=== PATIENT | female | born 1960 | race Caucasian/White ===

== ENCOUNTER 2017-11-30 08:43 | Outpatient (CLI) | payer BC | END 2017-11-30 08:44 | disposition home or self-care (01) | LOC: BICMAMMO 08:43 | PROVIDERS: ATTEND Obstetrics & Gynecology | DX: Z12.31 Encounter for screening mammogram for malignant neoplasm of breast (principal) | CPT/HCPCS: 77063; 77067 ==

== ENCOUNTER 2018-03-27 07:29 | Outpatient (CLI) | payer BC ==
--- NOTE | 2018-03-27 10:15 | MRI ---
CERVICAL SPINE MRI WITHOUT CONTRAST: Date: 03-27-18 Comparison: None. History: Radiculopathy and cervical pain radiating up neck and down bilateral arms. Technique: Multiplanar, multisequence MR imaging of cervical spine is obtained without contrast. FINDINGS: The sagittal STIR imaging demonstrates no focal area of osseous marrow edema. There is moderate degenerative change at the atlantoaxial interspace. There is minimal anterolisthesis at C4-5 and C5-6. No prevertebral soft tissue abnormality is seen. C2-3: There is mild bilateral facet hypertrophy. There is disc desiccation. No central canal or neura l foraminal stenosis. C3-4: There is disc desiccation and mild disc bulge. There is mild bilateral facet hypertrophy. No significant central canal or neural foraminal stenosis. C4-5: Disc desiccation, mild disc space narrowing and mild disc bulge. No significant central canal s tenosis. Facet and uncal vertebral osteophyte formation noted, left greater than right. No significan t neural foraminal stenosis. C5-6: There is disc space narrowing, disc desiccation and mild disc bulge. No significant central can al stenosis. Bilateral facet and uncal vertebral osteophyte formation. No significant neural foramina l stenosis on either side. C6-7: Disc space narrowing, disc desiccation and mild disc bulge. Partial effacement of ventral theca l sac. Mild bilateral facet and uncal vertebral osteophyte formation with no significant central jason l or neural foraminal stenosis. C7-T1: No significant central canal or neural foraminal stenosis. No focal area of abnormal signal intensity is identified within the cervical cord. IMPRESSION: Scattered degenerative disc disease and bilateral facet hypertrophy with no significant central canal or neural foraminal stenosis seen within the cervical spine. POS: [facility] [place]
== END 2018-03-27 07:30 | disposition home or self-care (01) ==
LOC: BICMRI 07:29
PROVIDERS: ATTEND Specialist
DX: M50.10 Cervical disc disorder with radiculopathy, unspecified cervical region (principal); M47.22 Other spondylosis with radiculopathy, cervical region
CPT/HCPCS: 72141

== ENCOUNTER 2020-01-25 08:15 | Outpatient (CLI) | payer BC ==
--- NOTE | 2020-01-25 09:08 | BD ---
DEXA BONE MINERAL DENSITY STUDY: HISTORY: Osteoporosis screening. COMPARISON: None. FINDINGS: Lumbar Spine: BMD (g/cm2) L1 0.918 T-Score: -0.7 0.6 L2 0.995 T-Score: -0.3 1.1 L3 1,992 T-Score: -0.7 0.7 L4 0.897 T-Score: -1.5 1.0 L1-L4 0.955 T-Score: -0.8 0.6 Femoral Neck: 0.842 T-Score: -0.1 1.2 Total Femur: 0.956 T-Score: 0.1 1.1 WHO classification: Normal. Impression: Normal bone mineral density. POS: [facility]
== END 2020-01-25 08:16 | disposition home or self-care (01) ==
LOC: BICMAMMO 08:15
PROVIDERS: ATTEND Physician Assistant
DX: Z13.820 Encounter for screening for osteoporosis (principal)
CPT/HCPCS: 77080

== ENCOUNTER 2021-10-05 09:52 | Outpatient (CLI) | payer OTHER | END 2021-10-05 09:53 | disposition home or self-care (01) | LOC: LABBT 09:52 | PROVIDERS: ATTEND Neurological Surgery | DX: Z20.822 Contact with and (suspected) exposure to COVID-19 (principal) | CPT/HCPCS: U0003; U0005 ==

== ENCOUNTER 2021-10-09 11:46 | Day surgery (SDC) | payer OTHER ==
[2021-10-07 08:36] VITALS: BMI 23.8
[2021-10-09] MEDS ORDERED: Midazolam HCl 2 mg/2 ml Vial ONE (12:33)
[2021-10-09] MEDS ORDERED: fentaNYL Citrate/PF 100 MCG/2 ML SYRINGE ONE (12:33)
== END 2021-10-09 15:06 | disposition home or self-care (01) ==
LOC: MRI 11:46
PROVIDERS: ATTEND Neurological Surgery
DX: M47.22 Other spondylosis with radiculopathy, cervical region (principal); M25.78 Osteophyte, vertebrae; M48.02 Spinal stenosis, cervical region; R25.1 Tremor, unspecified; I10 Essential (primary) hypertension; Z91.81 History of falling; Z79.82 Long term (current) use of aspirin; Z79.890 Hormone replacement therapy; Z79.899 Other long term (current) drug therapy; Z88.1 Allergy status to other antibiotic agents; Z88.6 Allergy status to analgesic agent
CPT/HCPCS: 70551; 72141; J2250

== ENCOUNTER 2023-03-04 08:05 | Outpatient (CLI) | payer OTHER | END 2023-03-04 08:06 | disposition home or self-care (01) | LOC: BICMAMMO 08:05 | PROVIDERS: ATTEND Family Medicine | DX: Z12.31 Encounter for screening mammogram for malignant neoplasm of breast (principal) | CPT/HCPCS: 77063; 77067 ==

== ENCOUNTER 2024-04-24 09:12 | Outpatient (CLI) | payer OTHER | END 2024-04-24 09:13 | disposition home or self-care (01) | LOC: BICRAD 09:12 | PROVIDERS: ATTEND Nurse Practitioner Family | DX: L08.9 Local infection of the skin and subcutaneous tissue, unspecified (principal); S80.811S Abrasion, right lower leg, sequela; R60.0 Localized edema ==

== ENCOUNTER 2024-05-16 07:57 | Outpatient (CLI) | payer OTHER | END 2024-05-16 07:58 | disposition home or self-care (01) | LOC: BICMAMMO 07:57 | PROVIDERS: ATTEND Family Medicine | DX: Z12.31 Encounter for screening mammogram for malignant neoplasm of breast (principal) | CPT/HCPCS: 77063; 77067 ==